=== PATIENT | male | born 1995 | race African-American/Black ===

== ENCOUNTER → 2023-04-26 | Outpatient (CLI) | payer BC ==
[2023-04-26 13:54] LABS: INR 1.2; PROTHROMBIN TIME 12.4 sec (9.6-11.0)
[2023-04-26 15:03] LABS: ALBUMIN 4.3 g/dL (3.4-5.0); BILIRUBIN DIRECT 0.2 mg/dL (0.0-0.2); BILIRUBIN TOTAL 1.2 mg/dL (0.1-1.0); PROTEIN TOTAL 8.3 g/dL (6.0-8.3)
[2023-04-26 15:26] LABS: VITAMIN B12 SERUM 603 pg/mL (211-911)
[2023-04-26 20:06] LABS: FERRITIN 17 ng/mL (22-322)
[2023-04-26 20:42] LABS: HEPATITIS C VIR.AB 0.21 INDEXVAL (0.00-0.80)
[2023-04-26 20:43] LABS: HEPATITIS A AB IGM NEGATIVE (NEGATIVE)
[2023-04-28 09:10] LABS: IMMUNOGLOBULIN A 209 mg/dL (90-386); IMMUNOGLOBULIN G 1994 mg/dL (603-1613); IMMUNOGLOBULIN M 89 mg/dL (20-172)
[2023-04-28 10:07] LABS: ANTI-NUCLEAR ANTIBODIES DIRECT Positive (Negative)
[2023-04-28 15:10] LABS: HBSAG SCREEN Negative (Negative); HEPATITIS B CORE ANTIBODY Negative (Negative); HEPATITIS B SURFACE AB QUAL Non Reactive (.)
== END | disposition home or self-care (01) ==
LOC: LAB 12:42
DX: Z11.59 Encounter for screening for other viral diseases (principal); D61.818 Other pancytopenia; R94.5 Abnormal results of liver function studies
CPT/HCPCS: 36415; 80076; 82390; 82607; 82728; 82746; 82784; 83540; 83550; 84450; 84460; 86038; 86704; 86706; 86709; 86803; 87340

== ENCOUNTER → 2023-04-28 | Outpatient (CLI) | payer BC ==
[~2023-04-28] MED LIST: BARIUM SULFATE 450ML ORAL SUSP ONE; IOHEXOL-300 100 ML BOTTLE ONE
== END | disposition home or self-care (01) ==
LOC: CT 07:36 → EDUNIT# 10:00
DX: R16.1 Splenomegaly, not elsewhere classified (principal); R10.32 Left lower quadrant pain
CPT/HCPCS: 74176; Q9967

== ENCOUNTER → 2023-09-05 | Outpatient (CLI) | payer BC ==
[~2023-09-05] MED LIST changes: -BARIUM SULFATE 450ML ORAL SUSP ONE
== END | disposition home or self-care (01) ==
LOC: CT 07:29
DX: R16.1 Splenomegaly, not elsewhere classified (principal); D12.9 Benign neoplasm of anus and anal canal; K64.9 Unspecified hemorrhoids
CPT/HCPCS: 74177; Q9967